=== PATIENT | male | born 1990 | race Caucasian/White ===

== ENCOUNTER 2017-03-06 14:31 | Emergency (ER) | payer OTHER ==
--- NOTE | 2017-03-06 15:13 | ED CLINICAL REPORT ---
Clinical Report - Physicians/Mid Levels [address] [place] [address] 03/06/2017 14:33 Patient: KUSHAL DE LEON Time Seen: 14:53 Mar 06 2017. Arrived- By private vehicle. Historian- patient. HISTORY OF PRESENT ILLNESS Chief Complaint: Injury to the right hand. The injury happened just prior to arrival. The patient sustained a laceration. Occurred at home. Patient is experiencing mild pain. Patient denies injury to the head. ( pt sustained lac from knife. Denies SI attempt, makes knives at home. RHD. Denies any active bleeding. No paresthesias, denies pain with movement.). REVIEW OF SYSTEMS The patient sustained a laceration. No tingling or numbness. All systems otherwise negative, except as recorded above. PAST HISTORY The patient's dominant hand is the right. He has not had a prior injury to the same area. Tetanus immunization status is unknown. Problems: no known problems. Additional Surgeries: Ankle surgery . Wrist surgery . Medications: None. Allergies: Penicillin. SOCIAL HISTORY Smoker- current status unknown (CHEW). No alcohol use or drug use. ADDITIONAL NOTES The nursing notes have been reviewed. PHYSICAL EXAM Vital Signs: 03/06/2017 14:44 BP: 154/80. HR: 64. RR: 18. O2 saturation: 98%. Temp: 97.8 F. Appearance: Alert. Head: Head atraumatic. ENT: Nose normal. CVS: Normal heart rate and rhythm. Heart sounds normal. Respiratory: No respiratory distress. Breath sounds normal. Extremities: Right palm: (ulnar aspect horizontal 1 cm full thickness lac, well approximated, good disatal flexion and rom.). No wrist injury. Neuro, Vascular and Tendons: Vascular status intact. Motor intact. PROGRESS AND PROCEDURES Laceration Repair: Time: 14:54 Mar 06 2017. Time-out completed immediately before the procedure. Length: 1 cm. Complexity: simple (local anesthesia used and sutured). Prepped with Shur-Clens and Betadine. Wound explored, cleansed and irrigated with normal saline. Closure of superficial layer: interrupted 5-0 (2 sutures, non absorb). Course of Care: full range of motion, patient declined anesthetic medication, is only 2 sutures needed to be placed, declined tetanus immunization. Full range of motion, no signs of concern for infection at this time, foreign object. Patient is stable to follow patient. NO signs of neurovascular compromise. Patient is stable. Symptoms better. Disposition: Discharged. Condition: good. CLINICAL IMPRESSION Single deep laceration to the right hand. INSTRUCTIONS Protect wound and keep wound area clean. Apply bacitracin twice daily. Sutures/andrés should be removed in seven days. Follow-up: Follow up with your doctor in days. (Electronically signed by Latonia Austin P.A.-C 03/06/2017 15:38)
--- NOTE | 2017-03-06 15:13 | ED CLINICAL REPORT ---
Clinical Report - Physicians/Mid Levels [facility] [address] [place] [address] 03/06/2017 14:33 Patient: KUSHAL DE LEON Time Seen: 14:53 Mar 06 2017. Arrived- By private vehicle. Historian- patient. HISTORY OF PRESENT ILLNESS Chief Complaint: Injury to the right hand. The injury happened just prior to arrival. The patient sustained a laceration. Occurred at home. Patient is experiencing mild pain. Patient denies injury to the head. ( pt sustained lac from knife. Denies SI attempt, makes knives at home. RHD. Denies any active bleeding. No paresthesias, denies pain with movement.). REVIEW OF SYSTEMS The patient sustained a laceration. No tingling or numbness. All systems otherwise negative, except as recorded above. PAST HISTORY The patient's dominant hand is the right. He has not had a prior injury to the same area. Tetanus immunization status is unknown. Problems: no known problems. Additional Surgeries: Ankle surgery . Wrist surgery . Medications: None. Allergies: Penicillin. SOCIAL HISTORY Smoker- current status unknown (CHEW). No alcohol use or drug use. ADDITIONAL NOTES The nursing notes have been reviewed. PHYSICAL EXAM Vital Signs: 03/06/2017 14:44 BP: 154/80. HR: 64. RR: 18. O2 saturation: 98%. Temp: 97.8 F. Appearance: Alert. Head: Head atraumatic. ENT: Nose normal. CVS: Normal heart rate and rhythm. Heart sounds normal. Respiratory: No respiratory distress. Breath sounds normal. Extremities: Right palm: (ulnar aspect horizontal 1 cm full thickness lac, well approximated, good disatal flexion and rom.). No wrist injury. Neuro, Vascular and Tendons: Vascular status intact. Motor intact. PROGRESS AND PROCEDURES Laceration Repair: Time: 14:54 Mar 06 2017. Time-out completed immediately before the procedure. Length: 1 cm. Complexity: simple (local anesthesia used and sutured). Prepped with Shur-Clens and Betadine. Wound explored, cleansed and irrigated with normal saline. Closure of superficial layer: interrupted 5-0 (2 sutures, non absorb). Course of Care: full range of motion, patient declined anesthetic medication, is only 2 sutures needed to be placed, declined tetanus immunization. Full range of motion, no signs of concern for infection at this time, foreign object. Patient is stable to follow patient. NO signs of neurovascular compromise. Patient is stable. Symptoms better. Disposition: Discharged. Condition: good. CLINICAL IMPRESSION Single deep laceration to the right hand. INSTRUCTIONS Protect wound and keep wound area clean. Apply bacitracin twice daily. Sutures/andrés should be removed in seven days. Follow-up: Follow up with your doctor in days. (Electronically signed by Latonia Austin P.A.-C 03/06/2017 15:38)
--- NOTE | 2017-03-06 15:14 | ED NURSING NOTES ---
Clinical Report - Nurses [facility] [address] [place] [address] 03/06/2017 14:33 Patient: KUSHAL DE LEON TRIAGE Triage time 14:40 Mar 06 2017. Acuity: LEVEL 3. Chief Complaint: LACERATION. JOSE MARTIN COMA SCORE: Jose Martin Coma Scale: 15- eyes open spontaneously (4); best verbal response- oriented x 4 (5); best motor response- obeys commands (6). --14:49 Lubna Gardiner R.N. 14:44 03/06/17. BP: 154/80. HR: 64. RR: 18. O2 saturation: 98%. Temp: 97.8 F. Pain level now 5/10. --14:49 Lubna Gardiner R.N. Weight: 72.5 kg stated. Height/Length: 70 inches Per Patient. BMI: 22.9. --14:44 Lubna Gardiner R.N. Medications None. --14:46 Lubna Gardiner R.N. Allergies Penicillin. --14:47 Lubna Gardiner R.N. History Arrived by private vehicle. Historian: patient. Accompanied by family. Location of injuries: right hand. This occurred today. ( Was making a knife and he tripped and the knife went into his hand.). Trauma activation: Pre-hospital notification of patient arrival was not received. PAST MEDICAL HX: Immunizations: (pt refuses Dtap). SOCIAL HX: Smoker- current status unknown (chews tobacco). Occasional alcohol use; consumes beer occasionally. History of drug use: marijuana. SELF HARM ASSESSMENT: A self harm assessment was performed. The patient answered "no" to the question "Have you recently felt down, depressed, or hopeless?" and "Do you have thoughts of harming or killing yourself?". FALL RISK ASSESSMENT: Fall risk assessment completed. No fall risk identified. NUTRITIONAL RISK ASSESSMENT: The nutritional risk assessment revealed no deficiencies. FUNCTIONAL ASSESSMENT: Functional assessment: no impairments noted. LEARNING NEEDS ASSESSMENT: The learning needs assessment revealed no barriers. ABUSE ASSESSMENT: Abuse assessment: (yes) The patient was asked "Do you feel safe in your home?". SKIN INTEGRITY ASSESSMENT: Skin integrity risk assessment completed. No skin integrity risk identified. --14:49 Lubna Gardiner R.N. PROBLEMS: no known problems. ADDITIONAL SURGERIES: Ankle surgery . Wrist surgery . --14:47 Lubna Gardiner R.N. Interventions ID band on patient. --14:49 Lubna Gardiner R.N. PHYSICAL ASSESSMENT Ambulatory to room. GENERAL / NEURO / PSYCH: Alert. Oriented X 4. Appears in no acute distress. HEENT: Pupils equal, round and reactive to light. Head non-tender. RESPIRATORY: Respirations not labored. Chest nontender. Breath sounds within normal limits. CVS: Normal heart rate and rhythm. Pulses within normal limits. Capillary refill less than 2 seconds. GI / : Abdomen soft and nontender. EXTREMITIES: Extremities exhibit normal ROM. Neuro-vascular status intact to the extremity. SKIN: ( small lac on palm of right hand). --14:55 Lubna Gardiner R.N. NURSING PROGRESS NOTES The initial plan of care for this patient includes an assessment with efforts to address patient positioning, appropriate ambient lighting and comfortable environmental temperature; impairment of the integumentary system. Call light placed in reach. Side rails up x 1. Bed placed in lowest position. Brakes of bed on. --14:56 Lubna Gardiner R.N. ( Wound cleaned and scrubbed now soaking.). --14:56 Lubna Gardiner R.N. DISPOSITION / DISCHARGE Departure time: 15:17 Mar 06 2017. Condition at departure: improved. No learning barriers present. Discharge instructions provided and reviewed with the patient. Reviewed warnings. Reviewed medication(s). Treatments reviewed. Reviewed referrals. Patient verbalized understanding. Written instructions provided in Singaporean. The patient was discharged home and accompanied by film processing shift supervisor. He left the Emergency Department ambulatory and via private vehicle. [employer] driving. --15:17 Lubna Gardiner R.N. 14:44 03/06/17. BP: 154/80. HR: 64. RR: 18. O2 saturation: 98%. Temp: 97.8 F. Pain level now 5/10. --15:17 Lubna Gardiner R.N. ( Dressing applied). --15:17 Lubna Gardiner R.N. Locked/Released at 03/06/2017 15:17 by Lubna Gardiner R.N.
--- NOTE | 2017-03-06 15:14 | ED NURSING NOTES ---
Clinical Report - Nurses [facility] [address] [place] [address] 03/06/2017 14:33 Patient: KUSHAL DE LEON TRIAGE Triage time 14:40 Mar 06 2017. Acuity: LEVEL 3. Chief Complaint: LACERATION. JOSE MARTIN COMA SCORE: Jose Martin Coma Scale: 15- eyes open spontaneously (4); best verbal response- oriented x 4 (5); best motor response- obeys commands (6). --14:49 Lubna Gardiner R.N. 14:44 03/06/17. BP: 154/80. HR: 64. RR: 18. O2 saturation: 98%. Temp: 97.8 F. Pain level now 5/10. --14:49 Lubna Gardiner R.N. Weight: 72.5 kg stated. Height/Length: 70 inches Per Patient. BMI: 22.9. --14:44 Lubna Gardiner R.N. Medications None. --14:46 Lubna Gardiner R.N. Allergies Penicillin. --14:47 Lubna Gardiner R.N. History Arrived by private vehicle. Historian: patient. Accompanied by family. Location of injuries: right hand. This occurred today. ( Was making a knife and he tripped and the knife went into his hand.). Trauma activation: Pre-hospital notification of patient arrival was not received. PAST MEDICAL HX: Immunizations: (pt refuses Dtap). SOCIAL HX: Smoker- current status unknown (chews tobacco). Occasional alcohol use; consumes beer occasionally. History of drug use: marijuana. SELF HARM ASSESSMENT: A self harm assessment was performed. The patient answered "no" to the question "Have you recently felt down, depressed, or hopeless?" and "Do you have thoughts of harming or killing yourself?". FALL RISK ASSESSMENT: Fall risk assessment completed. No fall risk identified. NUTRITIONAL RISK ASSESSMENT: The nutritional risk assessment revealed no deficiencies. FUNCTIONAL ASSESSMENT: Functional assessment: no impairments noted. LEARNING NEEDS ASSESSMENT: The learning needs assessment revealed no barriers. ABUSE ASSESSMENT: Abuse assessment: (yes) The patient was asked "Do you feel safe in your home?". SKIN INTEGRITY ASSESSMENT: Skin integrity risk assessment completed. No skin integrity risk identified. --14:49 Lubna Gardiner R.N. PROBLEMS: no known problems. ADDITIONAL SURGERIES: Ankle surgery . Wrist surgery . --14:47 Lubna Gardiner R.N. Interventions ID band on patient. --14:49 Lubna Gadriner R.N. PHYSICAL ASSESSMENT Ambulatory to room. GENERAL / NEURO / PSYCH: Alert. Oriented X 4. Appears in no acute distress. HEENT: Pupils equal, round and reactive to light. Head non-tender. RESPIRATORY: Respirations not labored. Chest nontender. Breath sounds within normal limits. CVS: Normal heart rate and rhythm. Pulses within normal limits. Capillary refill less than 2 seconds. GI / : Abdomen soft and nontender. EXTREMITIES: Extremities exhibit normal ROM. Neuro-vascular status intact to the extremity. SKIN: ( small lac on palm of right hand). --14:55 Lubna Gardiner R.N. NURSING PROGRESS NOTES The initial plan of care for this patient includes an assessment with efforts to address patient positioning, appropriate ambient lighting and comfortable environmental temperature; impairment of the integumentary system. Call light placed in reach. Side rails up x 1. Bed placed in lowest position. Brakes of bed on. --14:56 Lubna Gardiner R.N. ( Wound cleaned and scrubbed now soaking.). --14:56 Lubna Gardiner R.N. DISPOSITION / DISCHARGE Departure time: 15:17 Mar 06 2017. Condition at departure: improved. No learning barriers present. Discharge instructions provided and reviewed with the patient. Reviewed warnings. Reviewed medication(s). Treatments reviewed. Reviewed referrals. Patient verbalized understanding. Written instructions provided in Tongan. The patient was discharged home and accompanied by gyn. He left the Emergency Department ambulatory and via private vehicle. Thoracic Surgeon driving. --15:17 Lubna Gardiner R.N. 14:44 03/06/17. BP: 154/80. HR: 64. RR: 18. O2 saturation: 98%. Temp: 97.8 F. Pain level now 5/10. --15:17 Lubna Gardiner R.N. ( Dressing applied). --15:17 Lubna Gardiner R.N. Locked/Released at 03/06/2017 15:17 by Lubna Gardiner R.N.
--- NOTE | 2017-03-06 15:38 | ED MAR SUMMARY ---
..... Medication Administration Record [facility] [address] [place], [place] [id number] Patient: KUSHAL DE LEON Visit ID: [id number] 26y, M Weight: 72.5 kg Height/Length: 70 in BMI: 22.9 ALLERGIES: Penicillin
--- NOTE | 2017-03-06 15:38 | ED MAR SUMMARY ---
..... Medication Administration Record [facility] [address] [place], [place] [id number] Patient: KUSHAL DE LEON Visit ID: [id number] 26y, M Weight: 72.5 kg Height/Length: 70 in BMI: 22.9 ALLERGIES: Penicillin
--- NOTE | 2017-03-06 15:38 | ED DISCHARGE INSTRUCTIONS ---
Patient: KUSHAL DE LEON General Instructions [facility] VisitID: [id number] [place] [address] 26y, M Registration Date/Time: 03/06/2017 Single deep laceration to the right hand. INSTRUCTIONS Protect wound and keep wound area clean. Apply bacitracin twice daily. Sutures/andrés should be removed in seven days. Follow-up: Follow up with your doctor in days. ADDITIONAL INFORMATION Laceration (All Closures) Alaceration is a cut through the skin. This will usually require stitches (sutures) or andrés if it is deep. Minor cuts may be treated with a surgical tape closure orskin glue. Home care The following guidelines will help you care for your laceration at home: Extremity, face, or trunk wounds Keep the wound clean and dry. If a bandage was applied and it becomes wet or dirty, replace it. Otherwise, leave it in place for the first 24 hours. If stitches or andrés were used, clean the wound daily. After removing the bandage, wash the area with soap and water. Use a wet cotton swab to loosen and remove any blood or crust that forms. The doctor may prescribe an antibiotic cream or ointment to prevent infection. Do not stop taking this medication until you have finished the prescribed course or the doctor tells you to stop. The doctor may also prescribe medications for pain. Follow the doctors instructions for taking these medications. You may remove the bandage to shower as usual after the first 24 hours, but do not soak the area in water (no swimming) until the stitches or andrés are removed. If surgical tape was used, keep the area clean and dry. If it becomes wet, blot it dry with a towel. If skin glue was used, do not scratch, rub, or pick at the adhesive film. Do not place tape directly over the film. Do not apply liquid, ointment, or creams to the wound while the film is in place. Do not clean the wound with peroxide and do not apply ointments. Avoid activities that cause heavy sweating until the film has fallen off. Protect the wound from prolonged exposure to sunlight or tanning lamps. You may shower as usual but do not soak the wound in water (no baths or swimming). The film will fall off by itself in 510 days. Scalp wounds During the first two days, you may carefully rinse your hair in the shower to remove blood, glass or dirt particles. After two days, you may shower and shampoo your hair normally. Do not soak your scalp in the tub or go swimming until the stitches or andrés have been removed. Talk with your doctor before applying any antibiotic ointment to the wound. Mouth wounds Eat soft foods to reduce pain. If the cut is inside of your mouth, clean by rinsing after each meal and at bedtime with a mixture of equal parts water and hydrogen peroxide (do not swallow!). Or, you can use a cotton swab to directly apply hydrogen peroxide onto the cut. Mouth wounds can be painful when eating. You may use an ogac-hoi-ooewjkz local numbing solution for pain relief. If this is not available, you may use any numbing solution for teething babies. You may apply this directly to the sores with a cotton-tip swab or with your finger. Follow-up care Follow up with your health care provider. Most skin wounds heal within ten days. Mouth and facial wounds heal within five days. However, even with proper treatment, a wound infection may sometimes occur. Therefore, you should check the wound daily for signs of infection listed below. Stitches should be removed from the face within five days; stitches and andrés should be removed from other parts of the body within 714 days. If dissolving stitches were used in the mouth, these will fall out or dissolve without the need for removal. If tape closures were used, remove them yourself if they have not fallen off after 7 days. Ifskin glue was used, the film will fall off by itself in 510 days. When to seek medical care Get prompt medical attention if any of these occur: Bleeding not controlled by direct pressure Signs of infection, including increasing pain in the wound, increasing wound redness or swelling, or pus coming from the wound Fever of 100.4F (38C) or higher, or as directed by your health care provider Stitches or andrés come apart or fall out or surgical tape falls off before 7 days Wound edges re-open You have been given the following additional information: Laceration, All (Electronically signed by Latonia Austin P.A.-C 03/06/2017 15:38)
--- NOTE | 2017-03-06 15:39 | ED MED RECONCILIATION SUMMARY ---
Patient: KUSHAL DE LEON Medication Reconciliation Report [facility] VisitID: [id number] [address] [place] [address] 26y, M Registration Date/Time: 03/06/2017 Weight: 72.5 kg Height/Length: 70 in. BMI: 22.9 ALLERGIES: Penicillin The patient's Home Medications are listed below: NONE. The source(s) of the original Home Medication information: Not obtained. The following Medications were given to the patient in the Emergency Department: None. The following Medications were prescribed to the patient: None.
--- NOTE | 2017-03-06 15:39 | ED MED RECONCILIATION SUMMARY ---
Patient: KUSHAL DE LEON Medication Reconciliation Report [facility] VisitID: [id number] [address] [place] [address] 26y, M Registration Date/Time: 03/06/2017 Weight: 72.5 kg Height/Length: 70 in. BMI: 22.9 ALLERGIES: Penicillin The patient's Home Medications are listed below: NONE. The source(s) of the original Home Medication information: Not obtained. The following Medications were given to the patient in the Emergency Department: None. The following Medications were prescribed to the patient: None.
== END 2017-03-06 15:15 | disposition home or self-care (01) ==
LOC: ED SRH 14:31
DX: S61.411A Laceration without foreign body of right hand, initial encounter (principal); W26.0XXA Contact with knife, initial encounter; Y93.89 Activity, other specified; Y92.019 Unspecified place in single-family (private) house as the place of occurrence of the external cause; Y99.8 Other external cause status; Z88.0 Allergy status to penicillin